=== PATIENT | female | born 1970 | race Caucasian/White ===

== ENCOUNTER 2016-12-11 05:52 | Day surgery (SDC) | payer OTHER ==
[2016-12-10 14:43] LABS: BASOPHILS # (AUTO) 0.2 K/uL (0.00-0.22); EOSINOPHILS # (AUTO) 0.1 K/uL (0-0.4); HEMATOCRIT 35.8 % (36-48); HEMOGLOBIN 10.9 g/dL (12.0-16.0); MEAN CORPUSCULAR HEMOGLOBIN 23 pg (27-31); MEAN CORPUSCULAR HGB CONC 31 g/dL (33-37); MEAN CORPUSCULAR VOLUME 77 fL (80-94); MONOCYTES # (AUTO) 0.5 K/uL (0.8-1.0); NEUTROPHILS # (AUTO) 3.7 K/uL (1.8-7.7); PLATELET COUNT (AUTO) 373 K/uL (140-450); RED BLOOD CELL COUNT(AUTO) 4.67 MIL/uL (4.20-5.40); RED CELL DISTRIBUTION WIDTH 18.9 % (11.6-13.7); WHITE BLOOD COUNT (AUTO) 6.5 K/uL (4.8-10.8)
[2016-12-10 15:03] LABS: ALBUMIN 3.8 g/dL (3.4-5.0); ANION GAP 11.3 (8-16); CALCIUM 8.3 mg/dL (8.5-10.1); CARBON DIOXIDE 27.9 mmol/L (21-32); CREATININE 0.8 mg/dL (0.6-1.3); POTASSIUM 4.2 mmol/L (3.5-5.1); TOTAL BILIRUBIN 0.2 mg/dL (0.0-1.0); TOTAL PROTEIN, SERUM 7.5 g/dL (6.4-8.2)
[~2016-12-11] VITALS: Ht 165.1 cm; Wt 79.8 kg
[~2016-12-11 05:52] MED LIST: BENA10TA25 PO
[2016-12-11] MEDS ORDERED: IRON65TA11 PO (08:38)
[2016-12-11] MEDS ORDERED: [UNRECOGNIZED DRUG - CODE] PO (08:38)
[2016-12-11] MEDS ORDERED: BENA20TA PO (08:38)
[2016-12-11] MEDS ORDERED: IBUPROFEN 800 MG TAB PO PRN (09:45)
[2016-12-11] MEDS ORDERED: ONDANSETRON 4 MG/2 ML VIAL IVP PRN ×2 (09:45→11:35)
[2016-12-11] MEDS ORDERED: MORPHINE SULFATE 4 MG/ML SYR IM/IVP PRN (09:45)
[2016-12-11] MEDS ORDERED: ACETAMINOPHEN/CODEINE 300/30MG 1 TAB PO PRN (09:45)
[2016-12-11] MEDS ORDERED: PROPOFOL 200 MG/20 ML VIAL IV ONE (11:18)
[2016-12-11] MEDS ORDERED: ONDANSETRON 4 MG/2 ML VIAL ONE (11:18)
[2016-12-11] MEDS ORDERED: DEXAMETHASONE 4 MG/ML VIAL ONE (11:18)
[2016-12-11] MEDS ORDERED: MIDAZOLAM 2 MG/2 ML VIAL ONE (11:27)
[2016-12-11] MEDS ORDERED: MEPERIDINE 25 MG/ML SYR ONE (11:28)
[2016-12-11] MEDS ORDERED: fentaNYL 0.05 MG/ML VIAL ONE (11:28)
[2016-12-11] MEDS ORDERED: LACTATED RINGERS 1,000 ML IV SCH (11:33)
[2016-12-11] MEDS ORDERED: diphenhydrAMINE 50 MG/ML VIAL IVP PRN (11:35)
[2016-12-11] MEDS ORDERED: HYDROmorphone 1 MG/ML AMP IVP PRN (11:35)
[2016-12-11] MEDS ORDERED: MEPERIDINE 25 MG/ML SYR IVP PRN (11:35)
== END 2016-12-11 12:50 | disposition home or self-care (01) ==
LOC: MMU 05:52 → MOR 05:52
PROVIDERS: ATTEND Obstetrics & Gynecology
DX: N92.1 Excessive and frequent menstruation with irregular cycle (principal); I10 Essential (primary) hypertension; D64.9 Anemia, unspecified; R06.02 Shortness of breath; Z98.890 Other specified postprocedural states; Z79.899 Other long term (current) drug therapy; Z98.51 Tubal ligation status; Z88.0 Allergy status to penicillin
CPT/HCPCS: 36415; 58120; 80053; 84702; 85025; 86886; 86900; 86901; J1100; J2175; J2250; J2405; J2704; J3010; J7120

== ENCOUNTER 2017-04-09 06:00 | Day surgery (SDC) | payer OTHER ==
[~2017-04-09] VITALS: Ht 167.6 cm; Wt 82.6 kg
[~2017-04-09 06:00] MED LIST changes: +BENA20TA PO; +FERR-252 PO; +[UNRECOGNIZED DRUG - CODE] PO
[2017-04-09] MEDS ORDERED: DEXAMETHASONE 4 MG/ML VIAL IVP ONE (06:01)
[2017-04-09] MEDS ORDERED: ONDANSETRON 4 MG/2 ML VIAL IVP PRN ×2 (06:55→07:45)
[2017-04-09] MEDS ORDERED: ACETAMINOPHEN/CODEINE 300/30MG 1 TAB PO PRN (06:55)
[2017-04-09] MEDS ORDERED: IBUPROFEN 800 MG TAB PO PRN (06:55)
[2017-04-09] MEDS ORDERED: MORPHINE SULFATE 4 MG/ML SYR IM/IVP PRN (06:55)
[2017-04-09] MEDS ORDERED: MEPERIDINE 25 MG/ML SYR IVP PRN (07:45)
[2017-04-09] MEDS ORDERED: HYDROmorphone 1 MG/ML AMP IVP PRN (07:45)
[2017-04-09] MEDS ORDERED: diphenhydrAMINE 50 MG/ML VIAL IVP PRN (07:45)
[2017-04-09] MEDS ORDERED: LACTATED RINGERS 1,000 ML IV SCH (07:45)
[2017-04-09] MEDS ORDERED: MEPERIDINE 50 MG/ML SYR ONE (07:48)
[2017-04-09] MEDS ORDERED: fentaNYL 0.05 MG/ML VIAL ONE (07:48)
[2017-04-09] MEDS ORDERED: MIDAZOLAM 2 MG/2 ML VIAL ONE (07:48)
[2017-04-09] MEDS ORDERED: ONDANSETRON 4 MG/2 ML VIAL IVP ONE (07:50)
[2017-04-09] MEDS ORDERED: SEVOFLURANE 250 ML BTL INH ONE (07:50)
== END 2017-04-09 10:03 | disposition home or self-care (01) ==
LOC: MMU 06:00 → MDS 06:00
PROVIDERS: ATTEND Obstetrics & Gynecology
DX: N92.1 Excessive and frequent menstruation with irregular cycle (principal); I10 Essential (primary) hypertension; Z88.0 Allergy status to penicillin; Z98.890 Other specified postprocedural states; Z79.899 Other long term (current) drug therapy; Z98.51 Tubal ligation status
CPT/HCPCS: 58120; 93005; J1100; J2250; J2405; J3010; J7120; J2175

== ENCOUNTER 2017-06-17 03:55 | Emergency (ER) | payer OTHER ==
[~2017-06-17] VITALS: Ht 167.6 cm; Wt 82.6 kg
[2017-06-17 04:01] VITALS: BP 142/90
--- NOTE | 2017-06-17 04:06 | NUR ---
TO ER BED 3
--- NOTE | 2017-06-17 04:10 | NUR ---
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 PT STATED SHE COUGHS WITH YELLOW AND GREEN PHLEGM. HX OF HTN. DENIES FEVER. LEFT LOWER LOBE WITH WHEEZING AND OTHER LOBES SOUND CLEAR. RR EVEN AND UNLABORED. S1 ANS S2 HEARD. PT ON MASONRY SUPERVISOR. SR ON MONITOR. DR. LAZO MADE AWARE. Addendum: 06/17/17 at 0427 by JOSEPH PT BIB FAMILY MEMBER C/O WORSENING COUGH AND ASSOCIATED CHEST TIGHTNESS X 6 DAYS. PT STATED SHE COUGHS WITH YELLOW AND GREEN PHLEGM. HX OF HTN. DENIES FEVER. LEFT LOWER LOBE WITH WHEEZING AND OTHER LOBES SOUND CLEAR. RR EVEN AND UNLABORED. S1 ANS S2 HEARD. PT ON MASONRY SUPERVISOR. SR ON MONITOR. DR. LAZO MADE AWARE.
--- NOTE | 2017-06-17 04:15 | NUR ---
DR. LAZO EVALUATING PT AT BED SIDE.
--- NOTE | 2017-06-17 04:26 | NUR ---
EKG BEING PERFOMED AT BED SIDE
[2017-06-17 04:31] LABS: BASOPHILS # (AUTO) 0.2 K/uL (0.00-0.22); BASOPHILS % (AUTO) 2.8 % (0.0-2.0); EOSINOPHILS # (AUTO) 0.2 K/uL (0-0.4); EOSINOPHILS % (AUTO) 2.4 % (0.0-4.0); HEMATOCRIT 31.9 % (36-48); HEMOGLOBIN 9.7 g/dL (12.0-16.0); LYMPHOCYTES # (AUTO) 2.3 K/uL (2.5-16.5); MEAN CORPUSCULAR HEMOGLOBIN 22 pg (27-31); MEAN CORPUSCULAR HGB CONC 31 g/dL (33-37); MEAN CORPUSCULAR VOLUME 73 fL (80-94); MONOCYTES # (AUTO) 0.9 K/uL (0.8-1.0); MONOCYTES % (AUTO) 10.1 % (1.7-9.3); NEUTROPHILS # (AUTO) 5.1 K/uL (1.8-7.7); NEUTROPHILS % (AUTO) 58.7 % (42.2-75.2); PLATELET COUNT (AUTO) 442 K/uL (140-450); RED CELL DISTRIBUTION WIDTH 16.5 % (11.6-13.7); WHITE BLOOD COUNT (AUTO) 8.7 K/uL (4.8-10.8)
[2017-06-17 04:44] LABS: ANION GAP 11.5 (8-16); CARBON DIOXIDE 27.4 mmol/L (21-32); CREATININE 0.8 mg/dL (0.6-1.3); POTASSIUM 3.9 mmol/L (3.5-5.1)
[2017-06-17 04:49] LABS: TOTAL BILIRUBIN 0.2 mg/dL (0.0-1.0)
[2017-06-17 04:50] LABS: ALBUMIN 3.3 g/dL (3.4-5.0)
--- NOTE | 2017-06-17 04:56 | NUR ---
BASS SINGER AT BED SIDE PERFORMING CHEST XRAY.
[2017-06-17 05:35] VITALS: BP 142/90
--- NOTE | 2017-06-17 05:35 | NUR ---
Patient discharged with v/s stable. Written and verbal after care instructions given and explained. Patient alert, oriented and verbalized understanding of instructions. Ambulatory with steady gait. All questions addressed prior to discharge. ID band removed. Patient advised to follow up with PMD. Rx of IBUPROFEN AND TESSALON PERLES given. Patient educated on indication of medication including possible reaction and side effects. Opportunity to ask questions provided and answered.
== END 2017-06-17 05:35 | disposition home or self-care (01) ==
LOC: MED 03:55
DX: R09.1 Pleurisy (principal); D64.9 Anemia, unspecified; I10 Essential (primary) hypertension; Z90.710 Acquired absence of both cervix and uterus; Z79.899 Other long term (current) drug therapy; Z88.0 Allergy status to penicillin
CPT/HCPCS: 36415; 71045; 80053; 83880; 84484; 85025; 93005; 99285; Q0092

== ENCOUNTER 2017-06-25 08:08 | Emergency (ER) | payer OTHER ==
[~2017-06-25] VITALS: Ht 162.6 cm; Wt 86.6 kg
--- NOTE | 2017-06-25 08:16 | NUR ---
Pt ambulated to bed 3.
[2017-06-25 08:19] VITALS: BP 127/98
--- NOTE | 2017-06-25 08:24 | NUR ---
PATIENT PRESENTS TO ED WITH C/O SOB, COUGH, STERNAL CP 5/10 WHEN COUGHING; SEEN ON 06/17/2017 FOR PLEURISY; PRESCRIBE TESSALON PERLES, IBUPROFEN;HX OF HTN;RX OF LOTINSE; PT WAS ADMIITED HERE IN [facility] W/ DX OF PLEURISY;PT STATES SHE'S NOT GETTING BETTER;DENIES N/V/D; SKIN IS PINK/WARM/DRY; AAOX4 WITH EVEN AND STEADY GAIT; LUNGS CLEAR BL; HR EVEN AND REGULAR; PATIENT STATES PAIN OF 5/10 AT THIS TIME; PATIENT POSITIONED FOR COMFORT; HOB ELEVATED; BEDRAILS UP X2; BED DOWN. ER MD MADE AWARE OF PT STATUS.
--- NOTE | 2017-06-25 08:24 | NUR ---
RT called for breathing treatment.
[2017-06-25] MEDS ORDERED: ALBUTEROL SULFATE/IPRATROPIU 3 ML SOL IH ONE ×2 (08:25→08:32)
--- NOTE | 2017-06-25 08:38 | NUR ---
RT AT BEDSIDE.
--- NOTE | 2017-06-25 08:57 | NUR ---
DR LAZO AT BEDSIDE.EVALUATING PT.
[2017-06-25] MEDS ORDERED: KETOROLAC 60 MG/2 ML VIAL IM ONE ×2 (09:05→09:08)
--- NOTE | 2017-06-25 10:02 | NUR ---
PT VERBALIZES DECREASED OF PAIN FROM 5/10 TO 2/10;NO FACIAL GRIMMACING/MOANING NOTED;WILL CONTINUE TO MONITOR PT.
--- NOTE | 2017-06-25 10:56 | NUR ---
Patient discharged with v/s stable. Written and verbal after care instructions given and explained. Patient alert, oriented and verbalized understanding of instructions. Ambulatory with steady gait. All questions addressed prior to discharge. ID band removed. Patient advised to follow up with PMD. Rx of VENTOLIN HFA ,IBUPROFEN AND PROMETHAZINE HYDROCHLORIDE given. Patient educated on indication of medication including possible reaction and side effects. Opportunity to ask questions provided and answered.ADVISED PT TO HAVE A LOT OF REST AND INCREASED FLUID INTAKE;
[2017-06-25 10:57] VITALS: BP 139/84
== END 2017-06-25 08:16 | disposition home or self-care (01) ==
LOC: MED 08:08
DX: J06.9 Acute upper respiratory infection, unspecified (principal); I10 Essential (primary) hypertension; Z88.0 Allergy status to penicillin
CPT/HCPCS: 71046; 94640; 94760; 96372; 99284; J1885; J7620

== ENCOUNTER 2018-09-17 09:03 | Emergency (ER) | payer OTHER ==
[~2018-09-17] VITALS: Ht 167.6 cm; Wt 84.0 kg
[2018-09-17 09:07] VITALS: BP 141/92
--- NOTE | 2018-09-17 09:17 | NUR ---
PT AMB TO BED 7
--- NOTE | 2018-09-17 09:25 | NUR ---
TRANSPORTED TO RADIOLOGY VIA W/C.
--- NOTE | 2018-09-17 09:35 | NUR ---
47 YO F BIB SELF C/O COUGH, SORE THROAT, SOB X YESTERDAY. DENIES N/V/D. REPORTED FEVER TEMP 101 AT 6 AM YESTERDAY. NO FEVER AT THIS TIME. DENIES BODYACHE. PREVIOUS MEDICAL HX OF HTN. PT CONNECTED TO MONITOR, V/S STABLE. HOB ELEVATED & SIDE RAIL UP X1 FOR SAFETY. ENCOURAGED TO PROVIDE URINE SAMPLE.
--- NOTE | 2018-09-17 09:44 | NUR ---
PT IS BACK FROM RADIOLOGY 7 BEING RE CONNECTED TO THE MONITOR.
[2018-09-17] MEDS ORDERED: DEXAMETHASONE 10 MG/ML VIAL IM ONE (10:20)
--- NOTE | 2018-09-17 10:33 | NUR ---
MEDICATION ADMINISTERED ORDERED BY MD. PT IS RELAXED AND WITH V/S STABLE. NO BREATHING PATTERN IS EVEN AND UNLABORED. COUGH AND HOARSENESS PRESENT. PT VERBALIZED, " MY PAIN LEVEL IS 1/10, IT ONLY HURTS IF I COUGH TOO MUCH". SIDERAIL X1 UP FOR SAFETY, CALL LIGHT WITHIN EASY REACH.
--- NOTE | 2018-09-17 10:37 | NUR ---
BREATHING PATTERN IS EVEN AND UNLABORED.
[2018-09-17 11:20] VITALS: BP 151/91
--- NOTE | 2018-09-17 11:21 | NUR ---
Patient discharged with v/s stable. Written and verbal after care instructions given and explained. Patient alert, oriented and verbalized understanding of instructions. Ambulatory with steady gait. All questions addressed prior to discharge. Patient advised to follow up with PMD. Rx of Codeine Phosphate/Promethazine Hydrochloride for cough and Motrin for pain given. Patient educated on indication of medication including possible reaction and side effects. Opportunity to ask questions provided and answered.
== END 2018-09-17 11:12 | disposition home or self-care (01) ==
LOC: MED 09:03
DX: J04.0 Acute laryngitis (principal); I10 Essential (primary) hypertension; Z88.0 Allergy status to penicillin; Z79.899 Other long term (current) drug therapy
CPT/HCPCS: 70360; 71046; 96372; 99283; J1100

== ENCOUNTER 2020-11-22 18:29 | Emergency (ER) | payer OTHER ==
[~2020-11-22] VITALS: Ht 167.6 cm; Wt 100.7 kg
[2020-11-22 18:43] VITALS: BP 122/71
--- NOTE | 2020-11-22 19:15 | NUR ---
Elias grimes in [facility] - 11/22/20 at 1916 by [email or web address] RECIEVED REPORT FROM JAGRUTI CUELLAR FOR CONTINUITY OF CARE.
--- NOTE | 2020-11-22 19:30 | NUR ---
PT BIB SELF FOR C/O RLE PAIN S/P PLANTAR FASCIITIS SURGERY ON 10/17. PTS PAIN IS 6/10 AND UNRELIEVED BY IBUPROFEN. PT STATES THE PAIN RADIATES TO HER MID THIGH ON RLE. SCAR NOTED TO RIGHT ANKLE WITH SLIGHT REDNESS NOTED. MILD SWELLING BILATERALLY TO LOWER EXTREMITIES. CAP REFILL <3 SECONDS. SKIN IS WARM, DRY AND INTACT. NO SIGNIFICANT WARMTH TO TOUCH. MED HX: HTN ALLERGIES: PENICILLINS.
--- NOTE | 2020-11-22 19:44 | NUR ---
ULTRASOUND AT BEDSIDE.
--- NOTE | 2020-11-22 20:24 | NUR ---
ERMD AT BEDSIDE.
[2020-11-22] MEDS ORDERED: ACET-8386 PO (20:34)
[2020-11-22] MEDS ORDERED: IBUP-2213 PO (20:34)
[2020-11-22 20:39] VITALS: BP 122/71
--- NOTE | 2020-11-22 20:39 | NUR ---
Patient discharged with v/s stable. Written and verbal after care instructions given and explained. Patient alert, oriented and verbalized understanding of instructions. Ambulatory with steady gait WITH CRUTCH ASSIST. All questions addressed prior to discharge. ID band removed. Patient advised to follow up with PMD. Rx of IBUPROFEN AND NORCO given. Patient educated on indication of medication including possible reaction and side effects. Opportunity to ask questions provided and answered.
== END 2020-11-22 20:39 | disposition home or self-care (01) ==
LOC: MED 18:29
DX: M25.571 Pain in right ankle and joints of right foot (principal); M79.89 Other specified soft tissue disorders; I10 Essential (primary) hypertension; Z88.0 Allergy status to penicillin; Z79.899 Other long term (current) drug therapy
CPT/HCPCS: 93971; 99284

== ENCOUNTER 2023-03-23 03:27 | Emergency (ER) | payer OTHER ==
[~2023-03-23] VITALS: Ht 167.6 cm; Wt 104.3 kg
[~2023-03-23 03:27] MED LIST changes: +ACET-8905 PO; +IBUP-2213 PO
[2023-03-23 04:05] VITALS: BP 143/90; PULSE 83; RESP 17; TEMP 98; O2SAT 100
== END 2023-03-23 05:40 | disposition left against medical advice (07) ==
LOC: MED 03:27
DX: R03.0 Elevated blood-pressure reading, without diagnosis of hypertension (principal); R22.43 Localized swelling, mass and lump, lower limb, bilateral; Z53.21 Procedure and treatment not carried out due to patient leaving prior to being seen by health care provider
CPT/HCPCS: 99281

== ENCOUNTER 2023-03-25 12:01 | Emergency (ER) | payer OTHER ==
[~2023-03-25] VITALS: Ht 167.6 cm; Wt 72.6 kg
[2023-03-25 12:21] VITALS: BP 117/77; PULSE 85; RESP 18; TEMP 97; O2SAT 98
[2023-03-25 13:13] VITALS: TEMP 98
[2023-03-25 13:27] LABS: BASOPHILS # (AUTO) 0.1 K/uL (0.00-0.22); BASOPHILS % (AUTO) 0.8 % (0.0-2.0); EOSINOPHILS # (AUTO) 0.1 K/uL (0-0.4); HEMATOCRIT 42.5 % (36-48); HEMOGLOBIN 14.4 g/dL (12.0-16.0); LYMPHOCYTES % (AUTO) 30.9 % (20.5-51.1); MEAN CORPUSCULAR HEMOGLOBIN 32 pg (27-31); MEAN CORPUSCULAR HGB CONC 34 g/dL (33-37); MEAN CORPUSCULAR VOLUME 93.2 fL (80-94); MONOCYTES # (AUTO) 0.5 K/uL (0.8-1.0); MONOCYTES % (AUTO) 8.3 % (1.7-9.3); NEUTROPHILS # (AUTO) 3.7 K/uL (1.8-7.7); PLATELET COUNT (AUTO) 395 K/uL (140-450); RED BLOOD CELL COUNT(AUTO) 4.56 MIL/uL (4.20-5.40); RED CELL DISTRIBUTION WIDTH 12.8 % (11.6-13.7); WHITE BLOOD COUNT (AUTO) 6.4 K/uL (4.8-10.8)
[2023-03-25 13:54] LABS: ALBUMIN 3.9 g/dL (3.4-5.0); ANION GAP 11.8 (8-16); CALCIUM 8.9 mg/dL (8.5-10.1); CARBON DIOXIDE 29.1 mmol/L (21-32); CREATININE 0.9 mg/dL (0.6-1.3); POTASSIUM 3.9 mmol/L (3.5-5.1); TOTAL BILIRUBIN 0.3 mg/dL (0.0-1.0); TOTAL PROTEIN, SERUM 7.9 g/dL (6.4-8.2)
[2023-03-25] MEDS ORDERED: FURO-572 PO (13:55)
[2023-03-25 14:21] LABS: APPEARANCE,URINE CLEAR (CLEAR); BILIRUBIN,URINE NEGATIVE (NEGATIVE); BLOOD, URINE NEGATIVE (NEGATIVE); COLOR,URINE YELLOW (YELLOW); LEUKOCYTE ESTERASE ,URINE NEGATIVE (NEGATIVE); NITRITE, URINE NEGATIVE (NEGATIVE); PROTEIN,URINE NEGATIVE (NEGATIVE); UGLUCOSE NEGATIVE (NEGATIVE); UROBILINOGEN,URINE 0.2 EU/dL (0.2 - 1)
[2023-03-25 15:03] VITALS: BP 127/80; PULSE 74; RESP 17; O2SAT 98
== END 2023-03-25 15:03 | disposition home or self-care (01) ==
LOC: MED 12:01
DX: M79.89 Other specified soft tissue disorders (principal); I10 Essential (primary) hypertension; Z88.0 Allergy status to penicillin; Z79.899 Other long term (current) drug therapy
CPT/HCPCS: 36415; 71045; 80053; 81003; 81025; 83880; 84484; 85025; 93005; 93970; 99285; Q0092